=== PATIENT | female | born 1980 | race Caucasian/White ===

== ENCOUNTER → 2017-10-17 | Outpatient (CLI) | payer OTHER | LOC: FIMAGING 13:01 | PROVIDERS: ATTEND Advanced Practice Midwife | DX: O09.512 Supervision of elderly primigravida, second trimester (principal); Z3A.20 20 weeks gestation of pregnancy ==

== ENCOUNTER 2018-03-10 20:15 | Observation (INO) | payer OTHER ==
[2018-03-10] MEDS ORDERED: OXYTOCIN 10 UNIT/ML VIAL ONE (20:46)
[2018-03-10] MEDS ORDERED: MISOPROSTOL 200 MCG TAB ONE (20:46)
[2018-03-10] MEDS ORDERED: LIDOCAINE 1% 300 MG/30 ML SDV ONE (20:46)
[2018-03-10] MEDS ORDERED: fentaNYL 100 MCG/2 ML INJ ONE (20:57)
[2018-03-10] MEDS ORDERED: fentaNYL 100 MCG/2 ML INJ IVP ONE (21:15)
[2018-03-10] MEDS ORDERED: OXYTOCIN 100 UNITS/10 ML VIAL IV ONE (21:38)
[2018-03-10] MEDS ORDERED: LR 500 ML IV SCH (21:45)
[2018-03-10] MEDS ORDERED: ceFAZolin 2 GM in D5W 100 ML IV ONE (21:53)
--- NOTE | 2018-03-10 22:34 | GHP ---
DATE OF ADMISSION: 03/10/2018 ADMISSION DIAGNOSES: 1. Intrauterine at 41 weeks' gestation, who delivered at the Center with retained pl acenta. 2. Also, suspected gestational hypertension versus preeclampsia. HISTORY OF PRESENT ILLNESS: Patient is a 37-year-old 1, para 1-0-0-1, whose estimated date o f confinement was 03/03/2018. Patient had a spontaneous vaginal delivery at the [facility] this evening after 2 days of prodromal labor. She did well with the labor and the baby did well with delivery. However, the placenta did not spontaneously deliver. The midwives waited [place] an hour and after the placenta had not delivered, they transported the patient to [facility] for management of retained placenta. Patient's bladder was drained with a Toro catheter. Exam was performed and the placenta was still up inside the uterus and not in the introitus. With g entle traction, the placenta did not deliver. A Toro catheter was used to drain the patient's bladd er. A little bit more tension was used to try to deliver the placenta and the umbilical cord came of f with slight additional gentle traction. Management options were reviewed with the patient ksenia alcantara going to the operating room for extraction of the placenta versus nitrous oxide versus fentanyl. [facility] patient opted to use nitrous oxide, but it did not provide adequate pain relief, so she was given fentanyl. A manual extraction of the placenta was performed. Patient tolerated the procedure well. A bedside ultrasound was performed following the procedure and a thin stripe was noted. Pitocin was started and bleeding was noted to be minimal following the procedure. Prior to the initial admissio , patient was noted to have elevated blood pressures of 140s over 80s to 90s. Preeclampsia labs wer e obtained yesterday which were normal. On her ambulance ride over, the blood pressures were 140s ov er 80s; however, she has had slightly higher elevated blood pressures today since being admitted to [facility]. However, patient was in pain because of the manual extraction of the placenta. The pat ient is agreeable to staying overnight for assist with and getting some rest from after the extraction of the placenta, as well as observation of her blood pressures and potential magnesiu m sulfate if indicated. MEDICAL HISTORY: Significant for history of staph infections and abscesses requiring hospitalization and IV antibiotics. MTHFR heterozygous. MEDICATIONS: vitamins and iron. SURGICAL HISTORY: None. ALLERGIES: No known drug allergies. SOCIAL HISTORY: Patient is . She denies tobacco, alcohol, or drug use. FAMILY MEDICAL HISTORY: Noncontributory. BATCHMAKER HISTORY: She is a 1, para 1-0-0-1. She has just had her 1st spontaneous vaginal deli very several hours ago with a retained placenta. She does not have any history of abnormal Pap smear s. REVIEW OF SYSTEMS: Ten-point review of systems is negative with the exception of the above-mentioned pertinent positive. Patient just had a recent spontaneous vaginal delivery. She had a moderate moe unt of bleeding following delivery of the placenta, but her bleeding is noted to be minimal now. She denies any headache or changes in vision, nausea, vomiting, fevers, or chills. Other review of syst ems is negative. PHYSICAL EXAM: VITAL SIGNS: Stable. She has had 1 blood pressure of 190s over 100s; however, that was immediately following and during extraction of the placenta. The remainder have been 140s to 150 s over 80s to 90s. GENERAL: She alert and oriented x3. PSYCH: Appropriate affect. NECK: Mobile and supple. NEURO: Grossly intact. HEART: Regular, regular. LUNGS: Clear to auscultation bilate rally. ABDOMEN: Her fundus is firm, nondistended, nontender. EXTREMITIES: Reveal no calf tenderne ss or edema. LABS: labs are not available at this time. We will review. ASSESSMENT/PLAN: 37-year-old, 1, para 1-0-0-1 who had a retained placenta and borderline blo od pressures. Patient has had a manual extraction of the placenta. She will be given 2 g of Ancef, and patient will be observed for her blood pressures overnight and potentially started on magnesium s ulfate if indicated. /[id number]/MODL
[2018-03-11] MEDS ORDERED: EPSOM SALT 454 GM TP ONE (00:42)
[2018-03-11] MEDS: ACETAMINOPHEN 325 MG TAB PO SCH ×4 (01:51→22:56)
[2018-03-11] MEDS: IBUPROFEN 600 MG TAB PO SCH ×3 (03:50→22:56)
[2018-03-11 06:03] LABS: PLATELET COUNT 167 10^3/uL (150-400)
--- NOTE | 2018-03-11 07:25 | OBPP ---
Progress Note Assessment/Plan: Assessment: 37 yo ppd#1 s/p at [facility] s/p manual extraction of retained placenta. received 2 gm ancef breast feeding - consultation this am gestational hypertension vs preeclampsia +/_ anxiety affecting blood pressures - normal labs this am - will continue close observation of blood pressures and start mag if indicated maternal exhaustion following long prodromal labor and labor and delivery Plan: 03/11/18 07:22 Subjective/ Course: 03/11/18 07:20 patient is currently sleeping so not examined at this time. bleeding was minimal over night. she denies headache and changes in vision. has been working on breast feeding. normal lochia. has had a few elevated blood pressures right after the placenta was removed and when the baby was agitated but have remained under 140/90 for the last few blood pressures. Objective: 03/11/18 05:22 03/11/18 05:22 Uric Acid 6.8 mg/dL (2.5-6.8) 03/11/18 05:22 Total Bilirubin 0.2 mg/dL (0.1-1.4) 03/11/18 05:22 Conjugated Bilirubin 0.0 mg/dL (0.0-0.5) 03/11/18 05:22 Unconjugated Bilirubin 0.2 mg/dL (0.0-1.1) 03/11/18 05:22 AST 46 IU/L (14-46) 03/11/18 05:22 ALT 23 IU/L (9-52) 03/11/18 05:22 Lactate Dehydrogenase 862 IU/L (313-618) H 03/11/18 05:22 Temp Pulse Resp BP Pulse Ox 36.5 C 96 18 120/87 H 03/11/18 03:48 03/11/18 05:44 03/11/18 03:48 03/11/18 05:44
--- NOTE | 2018-03-11 10:28 | OBPP ---
Progress Note Assessment/Plan: Assessment: 37 y/o PPD #1 s/p with retained placenta requiring manual extraction and elevated BP Plan: Will transfer to Mom/ Baby today and continue to observe BP closely. Will hold PP MgSo4 for now, I do not think she has post pre eclampsia now, but I also do not want her to go home today. She will stay today and tonight for observation and support and she is in agreement. 03/11/18 10:30 Subjective/ Course: 03/11/18 07:20 patient is currently sleeping so not examined at this time. bleeding was minimal over night. she denies headache and changes in vision. has been working on breast feeding. normal lochia. has had a few elevated blood pressures right after the placenta was removed and when the baby was agitated but have remained under 140/90 for the last few blood pressures. 03/11/18 10:25 Pt seen and examined. She rested this am. She denies LOMELI, scotomata, blurred vision or other complaints. She has ambulated and voided and has min lochia currently. She is breast feeding her baby who is also doing well. She would like to go home today, but understands that careful observation of her BP today is what I recommend. Objective: 03/11/18 05:22 03/11/18 05:22 Uric Acid 6.8 mg/dL (2.5-6.8) 03/11/18 05:22 Total Bilirubin 0.2 mg/dL (0.1-1.4) 03/11/18 05:22 Conjugated Bilirubin 0.0 mg/dL (0.0-0.5) 03/11/18 05:22 Unconjugated Bilirubin 0.2 mg/dL (0.0-1.1) 03/11/18 05:22 AST 46 IU/L (14-46) 03/11/18 05:22 ALT 23 IU/L (9-52) 03/11/18 05:22 Lactate Dehydrogenase 862 IU/L (313-618) H 03/11/18 05:22 Temp Pulse Resp BP Pulse Ox 36.5 C 96 18 138/88 H 03/11/18 03:48 03/11/18 05:44 03/11/18 03:48 03/11/18 07:29 127/80, 120/87, 134/88, 146/81, 138/79, 140/98 Uterine Position/Fundal Height: Umbilicus -3 Uterine Tone: Firm Physical Exam - Physical Exam General Appearance: alert, no apparent distress Neck: non-tender, full range of motion, supple Respiratory: chest non-tender, lungs clear, normal breath sounds Cardiac/Chest: regular rate, rhythm Abdomen: normal bowel sounds Extremities: swelling (no), Letitia's sign (neg)
[2018-03-11] MEDS: LABETALOL HCL 100 MG TAB PO SCH ×2 (15:44→22:57)
[2018-03-12] MEDS: ACETAMINOPHEN 325 MG TAB PO SCH ×3 (02:16→10:00)
[2018-03-12] MEDS: LABETALOL HCL 100 MG TAB PO SCH (04:06)
[2018-03-12] MEDS: IBUPROFEN 600 MG TAB PO SCH ×2 (05:14→10:00)
[2018-03-12] MEDS ORDERED: LABETALOL HCL 200 MG TAB PO SCH ×2 (10:15→12:12)
[2018-03-12 12:12] VITALS: BP 109/72
--- NOTE | 2018-03-12 12:18 | OBPP ---
Progress Note Assessment/Plan: Assessment: 37 yo ppd#2 s/p at [facility] s/p manual extraction of retained placenta. received 2 gm ancef breast feeding gestational hypertension vs preeclampsia +/_ anxiety affecting blood pressures - normal labs - labetalol 200 bid caused symptomatic lowering of bp. will decrease to 100 bid continue close observation of blood pressures - pih post precautions and follow up discussed anemia - iron 03/12/18 12:15 Subjective/ Course: 03/11/18 07:20 patient is currently sleeping so not examined at this time. bleeding was minimal over night. she denies headache and changes in vision. has been working on breast feeding. normal lochia. has had a few elevated blood pressures right after the placenta was removed and when the baby was agitated but have remained under 140/90 for the last few blood pressures. 03/11/18 10:25 Pt seen and examined. She rested this am. She denies LOMELI, scotomata, blurred vision or other complaints. She has ambulated and voided and has min lochia currently. She is breast feeding her baby who is also doing well. She would like to go home today, but understands that careful observation of her BP today is what I recommend. 03/12/18 12:18 patient is doing well. continues to have elevated blood pressures on 100 mg of labetalol bid which was increased to 200 bid but resulted in hypotension. will continue with 100 bid. long discussion with patient about gestational hypertension vs preeclampsia and management. discussed retained placenta and removal. breast feeding is going well. will start iron rich foods and hydrate. disc pih precautions and warning signs and follo wup. denies headache and changes in vision. normal lochia. breast feeding is going well. will follow up in the office this week for blood pressure check,. Objective: 03/11/18 05:22 03/11/18 05:22 Uric Acid 6.8 mg/dL (2.5-6.8) 03/11/18 05:22 Total Bilirubin 0.2 mg/dL (0.1-1.4) 03/11/18 05:22 Conjugated Bilirubin 0.0 mg/dL (0.0-0.5) 03/11/18 05:22 Unconjugated Bilirubin 0.2 mg/dL (0.0-1.1) 03/11/18 05:22 AST 46 IU/L (14-46) 03/11/18 05:22 ALT 23 IU/L (9-52) 03/11/18 05:22 Lactate Dehydrogenase 862 IU/L (313-618) H 03/11/18 05:22 Temp Pulse Resp BP Pulse Ox 36.1 C 71 16 109/72 95 03/12/18 12:00 03/12/18 12:00 03/12/18 08:00 03/12/18 12:00 03/12/18 03:56 Physical Exam - Physical Exam Neck: non-tender, full range of motion, supple Respiratory: chest non-tender, lungs clear, normal breath sounds Cardiac/Chest: normal peripheral pulses, regular rate, rhythm Abdomen: normal bowel sounds, non-tender, other (fundus firm and non tender) Extremities: normal range of motion, non-tender, normal inspection, normal capillary refill Skin: normal color, warm/dry Neuro/Psych: no motor/sensory deficits, alert, normal mood/affect, oriented x 3
== END 2018-03-12 15:00 | disposition home or self-care (01) ==
LOC: FLD 20:15 → FOB 03-11 10:54
PROVIDERS: ADMIT Obstetrics & Gynecology; ATTEND Obstetrics & Gynecology
PROC: 10D Obstetrics, Pregnancy, Extraction (ICD-10-PCS; principal; 2018-03-10)
DX: O73.0 Retained placenta without hemorrhage (principal); O90.81 Anemia of the puerperium; R03.0 Elevated blood-pressure reading, without diagnosis of hypertension; Z3A.41 41 weeks gestation of pregnancy
CPT/HCPCS: 59414; 76815; 99241; G0378; G0463; J0690; J2590; J3010

== ENCOUNTER → 2018-03-23 | Outpatient (CLI) | payer OTHER | LOC: FIMAGING 16:48 | PROVIDERS: ATTEND Advanced Practice Midwife | DX: Z03.89 Encounter for observation for other suspected diseases and conditions ruled out (principal) ==